=== PATIENT | female | born 1960 | race Caucasian/White ===

== ENCOUNTER 2017-11-27 11:25 | Emergency (ER) | payer OTHER ==
--- NOTE | 2017-11-27 12:23 | RAD ---
RADIOGRAPH RIGHT SHOULDER THREE VIEWS: History: 57-year-old female status post acute traumatic right shoulder injury after fall. FINDINGS: No fracture or dislocation. Moderate degenerative changes at the AC joint. IMPRESSION: 1. No fracture. 2. Osteoarthrosis of the acromioclavicular joint. POS: [facility]
== END 2017-11-27 12:24 | disposition home or self-care (01) ==
LOC: NAV ERS 11:25
DX: M25.511 Pain in right shoulder (principal); F41.9 Anxiety disorder, unspecified; Z79.899 Other long term (current) drug therapy; W01.0XXA Fall on same level from slipping, tripping and stumbling without subsequent striking against object, initial encounter

== ENCOUNTER 2018-12-14 14:03 | Outpatient (CLI) | payer OTHER ==
--- NOTE | 2018-12-14 14:34 | RAD ---
2 views right hip. HISTORY: Right hip pain. AP and frog leg views right hip obtained. Osteophytes seen along the lateral aspect of the right acetabulum. No evidence of right hip fractures, subluxations or bony lesion seen. Joint spaces are well-maintaine d. No evidence of acute fractures seen. Right iliac endovascular stent is seen. IMPRESSION: right hip osteoarthritic changes.
== END 2018-12-14 14:04 | disposition home or self-care (01) ==
LOC: NAV RAD 14:03
PROVIDERS: ATTEND Family Medicine
DX: M25.551 Pain in right hip (principal); M16.11 Unilateral primary osteoarthritis, right hip